=== PATIENT | female | born 1985 | race Caucasian/White ===

== ENCOUNTER 2023-02-22 22:45 | Emergency (ER) | payer MEDICAID ==
[~2023-02-22] VITALS: Ht 165.1 cm; Wt 86.2 kg
[2023-02-22 23:14] VITALS: BP 136/94
--- NOTE | 2023-02-22 23:20 | NUR ---
TO BED 12 FROM TRIAGE Addendum: 02/22/23 at 2324 by NATALY TO BED 10 FROM TRIAGE
--- NOTE | 2023-02-22 23:36 | NUR ---
Dr. Garcia examining patient.
[2023-02-22] MEDS ORDERED: PIPERACILLIN/TAZOBACTAM 3.375 GM in DEXTROSE 5% 50 ML IV ONE (23:40)
[2023-02-22] MEDS ORDERED: NACL 0.9% 1,000 ML IV ONE (23:40)
[2023-02-22] MEDS ORDERED: KETOROLAC 30 MG/ML VIAL IVP ONE (23:40)
[2023-02-22 23:59] LABS: BASOPHILS # (AUTO) 0.1 K/uL (0.00-0.22); BASOPHILS % (AUTO) 0.6 % (0.0-2.0); EOSINOPHILS # (AUTO) 0.2 K/uL (0-0.4); EOSINOPHILS % (AUTO) 1.8 % (0.0-4.0); HEMATOCRIT 37.6 % (36-48); HEMOGLOBIN 12.6 g/dL (12.0-16.0); LYMPHOCYTES # (AUTO) 2.4 K/uL (2.5-16.5); MEAN CORPUSCULAR HEMOGLOBIN 30 pg (27-31); MEAN CORPUSCULAR HGB CONC 34 g/dL (33-37); MEAN CORPUSCULAR VOLUME 89.3 fL (80-94); MONOCYTES # (AUTO) 0.9 K/uL (0.8-1.0); MONOCYTES % (AUTO) 8.2 % (1.7-9.3); NEUTROPHILS # (AUTO) 7.9 K/uL (1.8-7.7); NEUTROPHILS % (AUTO) 68.4 % (42.2-75.2); PLATELET COUNT (AUTO) 298 K/uL (140-450); RED BLOOD CELL COUNT(AUTO) 4.21 MIL/uL (4.20-5.40); RED CELL DISTRIBUTION WIDTH 12.9 % (11.6-13.7); WHITE BLOOD COUNT (AUTO) 11.5 K/uL (4.8-10.8)
--- NOTE | 2023-02-23 00:07 | NUR ---
PT TO BED 12
[2023-02-23 00:16] LABS: ALBUMIN 4.3 g/dL (3.4-5.0); ANION GAP 12.8 (8-16); CARBON DIOXIDE 29.2 mmol/L (21-32); TOTAL BILIRUBIN 0.5 mg/dL (0.0-1.0)
[2023-02-23] MEDS ORDERED: PIPERACILLIN/TAZOBACTAM 3.375 GM VIAL IV ONE (00:17)
[2023-02-23] MEDS ORDERED: NAPR-54 PO (02:20)
[2023-02-23] MEDS ORDERED: METR-435 PO (02:20)
[2023-02-23 02:25] VITALS: BP 136/94
--- NOTE | 2023-02-23 02:25 | NUR ---
D/C BY , PRESCRIBED METRONIDAZOLE AND NAPROSYN.
== END 2023-02-23 02:25 | disposition home or self-care (01) ==
LOC: MED 22:45
DX: K61.1 Rectal abscess (principal); Z98.890 Other specified postprocedural states; Z79.1 Long term (current) use of non-steroidal anti-inflammatories (NSAID); Z79.2 Long term (current) use of antibiotics
CPT/HCPCS: 36415; 74176; 80053; 85025; 87040; 96365; 96375; 99285; J1885; J2543; J7030